=== PATIENT | male | born 1945 | race Caucasian/White ===

== ENCOUNTER 2025-01-03 18:29 | Emergency (ER) | payer MEDICARE, SELFPAY ==
[2025-01-03 18:37] VITALS: BP 170/90; PULSE 83; RESP 16; TEMP 36.9; O2SAT 100
--- NOTE | 2025-01-03 21:25 | ED_ITS ---
HPI - Extremity Problem General Chief complaint: Extremity Problem,Nontraumatic Stated complaint: R FOOT PAIN Time Seen by Provider: 01/03/25 19:50 History of Present Illness HPI Narrative: 79-year-old male with no pertinent past medical history presenting to the emergency department for evaluation of some swelling and redness to a vein in his right lower extremity. Started the top of his right foot and streaks slightly upwards towards his ankle. Denies any trauma or injury. Denies any bug bites or scratches. States he has been doing lots of heavy lifting and work on around of a [place] recently but denies any traumatic injuries or scratches, cuts or any potential exposures to his knowledge. No calf pain or calf cramping or leg asymmetry otherwise. Able to plantar and dorsiflex the ankle without any significant issues or pain. Ambulatory without any difficulty. No fever, chills or any systemic symptoms. Related Data Allergies Allergy/AdvReac Type Severity Reaction Status Date / Time Penicillins Allergy Unknown Verified 01/03/25 18:30 Review of Systems Review of Systems: As reviewed above in HPI Exam Narrative: GENERAL: [Well-appearing, well-nourished, and in no acute distress.] HEAD: [Normocephalic, atraumatic.] EYES: [PERRLA and EOMI.] ENT: Nares clear, no rhinorrhea or epistaxis. Mucous membranes moist. NECK: Supple. CHEST: [Clear to auscultation. No respiratory distress.] HEART: [Regular rate and rhythm]. No murmur heard. [Normal peripheral pulses.] ABDOMEN: [Soft, nondistended], [nontender], [No rigidity or guarding] EXTREMITIES: On the top of the right foot there is a redness and inflammation with some induration consistent with phlebitis. DP pulses intact and separate from this area in question. Extend slightly posteriorly towards the ankle but does not streak upwards and appears to be an isolated area approximately 3 cm. Fluctuance or palpable masses, mild pain with palpation, no purulent drainage. No streaking redness up the extremity. No calf asymmetry or signs of DVT. Full range of motion and ambulatory without difficulty. SKIN: Warm, dry, no rash. NEURO: [No focal deficits]. Alert and oriented [x3.] PSYCH: [Normal mood and affect.] Course Vital Signs Vital signs: Vital Signs Temperature 36.9 C 01/03/25 18:37 Pulse Rate 83 01/03/25 18:37 Respiratory Rate 16 01/03/25 18:37 Blood Pressure 170/90 H 01/03/25 18:37 Pulse Oximetry 100 01/03/25 18:37 Oxygen Delivery Room Air 01/03/25 18:37 Temperature 36.9 C 01/03/25 18:37 Pulse Rate 83 01/03/25 18:37 Respiratory Rate 16 01/03/25 18:37 Blood Pressure 170/90 H 01/03/25 18:37 Pulse Oximetry 100 01/03/25 18:37 Oxygen Delivery Room Air 01/03/25 18:37 MDM - Extremity (Nontraumatic) MDM Narrative Medical decision making narrative: 79-year-old male with no pertinent past medical history presenting to the emergency department for evaluation of some swelling and redness to a vein in his right lower extremity. Started the top of his right foot and streaks slightly upwards towards his ankle. Denies any trauma or injury. Denies any bug bites or scratches. States he has been doing lots of heavy lifting and work on around of a [place] recently but denies any traumatic injuries or scratches, cuts or any potential exposures to his knowledge. No calf pain or calf cramping or leg asymmetry otherwise. Able to plantar and dorsiflex the ankle without any significant issues or pain. Ambulatory without any difficulty. No fever, chills or any systemic symptoms. On the top of the right foot there is a redness and inflammation with some induration consistent with phlebitis. DP pulses intact and separate from this area in question. Extend slightly posteriorly towards the ankle but does not streak upwards and appears to be an isolated area approximately 3 cm. Fluctuance or palpable masses, mild pain with palpation, no purulent drainage. No streaking redness up the extremity. No calf asymmetry or signs of DVT. Patient's exam consistent with phlebitis. He is afebrile with no systemic features. Given the redness and swelling with worsening over last few days will be aggressive in treat this with a combination of antibiotics and anti- inflammatories and patient was given return precautions to watch out for upon discharge. He was given 1st dose of Naprosyn and Keflex here prescription medications provided to his pharmacy. Safe for discharge with PCP follow-up instructions. Discharge Plan Discharge Clinical Impression: Phlebitis Patient Disposition: Home Condition: Stable Instructions: Antibiotic Form, Phlebitis (ED) Additional Instructions: Your exam is consistent with phlebitis/thrombophlebitis of the right lower extremity. We will treat this with a course of anti-inflammatories and antibiotics given the redness and swelling. You can also start wearing compression socks to allow the swelling to decrease and even apply ice up to 20 minutes at a time to the area that is inflamed. If you start noticing that the redness or swelling is worsening, streaking up the leg, associated with fever or chills or any other emergent concerns please return to the ER otherwise follow- up with your primary care provider. Patient Language: Jamaican Prescriptions: New cephalexin 500 mg capsule 500 mg PO Q12H 5 Days Qty: 10 0RF naproxen 500 mg tablet 500 mg PO BID 10 Days Qty: 20 0RF Follow-up/Referrals: Los Dyson DO [Physician] - 1 Week (Referral for PCP) PHYSICIAN,CUSTOMER SUPPORT COORDINATOR [Primary Care Provider] - Wander Randle MD [Physician] - 1 Week (PCP referral) Time of Disposition: 21:24
[2025-01-03 21:27] VITALS: BP 122/75; PULSE 87; RESP 18; TEMP 36.9; O2SAT 98
[2025-01-03] MEDS: NAPROXEN 500 MG TABLET PO (21:27)
[2025-01-03] MEDS: CEPHALEXIN 500 MG CAPSULE PO (21:27)
== END 2025-01-03 21:33 | disposition home or self-care (01) ==
PROVIDERS: Emergency Provider Student in an Organized Health Care Education/Training Program
DX: I80.3 Phlebitis and thrombophlebitis of lower extremities, unspecified (principal)
CPT/HCPCS: 99283; A9270